=== PATIENT | female | born 1975 | race Caucasian/White ===

== ENCOUNTER 2018-08-16 16:29 | Inpatient (IN) ==
[2018-08-16] MEDS ORDERED: LORazepam 2 MG/1 ML VIAL IV PRN (18:02)
[2018-08-16] MEDS ORDERED: ACETAMINOPHEN 325 MG TABLET PO PRN (18:03)
[2018-08-16] MEDS ORDERED: ONDANSETRON 4 MG/2 ML VIAL IV PRN (18:03)
[2018-08-16 18:31] LABS: Basophils % 0.6 % (0.0-0.8); Eosinophils # 0.1 10*3/uL (0.0-0.87); Eosinophils % 0.9 % (0.00-10.9); Hematocrit 39.1 VOL% (35.7-47.0); Hemoglobin 13.2 GM/DL (12.0-16.0); Immature Granulocytes % 0.1 %; Immature Granulocytes Absolute 0.01 #; Lymphocytes # 1.6 10*3/uL (1.4-4.0); Lymphocytes % 23.1 % (21.3-54.2); Mean Corpuscular HGB Conc 33.8 GM/DL (32-36); Mean Corpuscular Volume 98.5 FL (87-102); Mean Platelet Volume 9.4 FL (9.6-12.0); Monocytes % 5.3 % (1.7-12.7); Platelet Count 199 T/CUMM (130-400); Red Blood Count 3.97 MC/CUMM (3.8-5.5); Red Cell Distribution Width 13.2 % (9.3-17.3); White Blood Count 6.9 T/CUMM (4-12)
[2018-08-16 18:51] LABS: Calcium 8.9 MG/DL (8.5-10.1); Osmolality,Calculated 270.4 MOS/KG (273-304)
[2018-08-16] MEDS: chlordiazePOXIDE 25 MG CAPSULE PO SCH (19:14)
[2018-08-16] MEDS ORDERED: THIAMINE INJ 100 MG, FOLIC ACID INJ 1 MG, MULTIVITAMIN INJ 10 ML in SODIUM CHLORIDE 0.9... IV ONE (19:30)
[2018-08-16 19:40] LABS: Apearance,Urine CLEAR (Clear); Bacteria,Urine Occasional /HPF (Few); Bilirubin,Urine Negative (Negative); Blood, Urine Negative (Negative); Glucose,Urine (UA) >=500 mg/dL (Negative); Ketones,Urine Negative (Negative); Nitrite,Urine Negative (Negative); Protein,Urine Negative; RBC,Urine <1 /HPF (0-4); Squamous Epithelial Cell,Urine Occasional /HPF (0-10); Urine Color Straw (Yellow); Urine Specific Gravity 1.005 (1.001-1.035); Urine Urobilinogen < 2.0 EU/DL (0.2-1.0); WBC,Urine <1 /HPF (0-6)
[2018-08-17] MEDS: chlordiazePOXIDE 25 MG CAPSULE PO SCH ×4 (01:28→19:05)
[2018-08-17] MEDS: ZALEPLON 5 MG CAPSULE PO PRN ×3 (01:31→21:32)
[2018-08-17 05:23] LABS: Basophils % 0.7 % (0.0-0.8); Eosinophils # 0.1 10*3/uL (0.0-0.87); Eosinophils % 2.5 % (0.00-10.9); Hemoglobin 12.2 GM/DL (12.0-16.0); Immature Granulocytes % 0.2 %; Immature Granulocytes Absolute 0.01 #; Lymphocytes # 1.7 10*3/uL (1.4-4.0); Lymphocytes % 38.8 % (21.3-54.2); Mean Corpuscular Volume 100.3 FL (87-102); Mean Platelet Volume 9.5 FL (9.6-12.0); Monocytes % 12.5 % (1.7-12.7); Neutrophils % 45.3 % (38.7-73.9); Platelet Count 177 T/CUMM (130-400); Red Blood Count 3.69 MC/CUMM (3.8-5.5); Red Cell Distribution Width 13.2 % (9.3-17.3); White Blood Count 4.4 T/CUMM (4-12)
[2018-08-17] MEDS: DICYCLOMINE 10 MG CAPSULE PO PRN ×2 (05:30→20:30)
[2018-08-17 05:34] LABS: Calcium 9.2 MG/DL (8.5-10.1); Osmolality,Calculated 278.4 MOS/KG (273-304)
[2018-08-17] MEDS ORDERED: SERTRALINE 100 MG TABLET PO SCH (09:00)
[2018-08-17] MEDS: INDOMETHACIN 25 MG CAPSULE PO SCH ×3 (09:58→21:30)
[2018-08-17] MEDS: SERTRALINE 50 MG TABLET PO SCH (09:59)
[2018-08-17] MEDS: PROPRANOLOL 20 MG TABLET PO SCH ×2 (09:59→20:30)
[2018-08-17] MEDS: ATORVASTATIN 20 MG TABLET PO SCH (09:59)
[2018-08-17] MEDS ORDERED: LOPERAMIDE 2 MG CAPSULE PO PRN (10:09)
[2018-08-17] MEDS ORDERED: PANTOPRAZOLE 20 MG TABLET PO SCH (10:12)
[2018-08-17] MEDS: LISINOPRIL 20 MG TABLET PO SCH (10:42)
[2018-08-17] MEDS: NICOTINE 14 MG/24 HR PATCH TRANSDERM SCH (10:42)
[2018-08-17] MEDS: PANTOPRAZOLE 40 MG TABLET PO SCH (10:42)
[2018-08-17] MEDS: HydrOXYzine PAMOATE 25 MG CAPSULE PO PRN ×2 (12:51→19:06)
[2018-08-17] MEDS: NORTRIPTYLINE 10 MG CAPSULE PO SCH (21:30)
[2018-08-18] MEDS: chlordiazePOXIDE 25 MG CAPSULE PO SCH ×3 (02:34→18:14)
[2018-08-18 04:21] LABS: Basophils % 0.7 % (0.0-0.8); Eosinophils # 0.1 10*3/uL (0.0-0.87); Eosinophils % 2.9 % (0.00-10.9); Hematocrit 36.1 VOL% (35.7-47.0); Hemoglobin 11.7 GM/DL (12.0-16.0); Immature Granulocytes % 0.2 %; Immature Granulocytes Absolute 0.01 #; Lymphocytes # 2.2 10*3/uL (1.4-4.0); Lymphocytes % 52.3 % (21.3-54.2); Mean Corpuscular HGB Conc 32.4 GM/DL (32-36); Mean Corpuscular Volume 101.7 FL (87-102); Mean Platelet Volume 9.5 FL (9.6-12.0); Monocytes % 8.7 % (1.7-12.7); Neutrophils % 35.2 % (38.7-73.9); Platelet Count 176 T/CUMM (130-400); Red Blood Count 3.55 MC/CUMM (3.8-5.5); Red Cell Distribution Width 13.3 % (9.3-17.3); White Blood Count 4.1 T/CUMM (4-12)
[2018-08-18 04:45] LABS: Calcium 8.4 MG/DL (8.5-10.1); Osmolality,Calculated 279.3 MOS/KG (273-304)
[2018-08-18 04:50] LABS: Eosinophils 5 % (0-10); Lymphocytes 52 % (20-55); Segmented Neutrophils 37 % (50-85); Total Cells Counted 100
[2018-08-18 04:51] LABS: Anisocytosis Slight; Microcytosis Slight; Platelet Estimate Normal; Stomatocytes Slight
[2018-08-18] MEDS ORDERED: MAGNESIUM SULF RIDER 4 GM in PREMIX 1 EACH IV PRN (07:43)
[2018-08-18] MEDS: LISINOPRIL 20 MG TABLET PO SCH (08:36)
[2018-08-18] MEDS: PROPRANOLOL 20 MG TABLET PO SCH ×2 (08:37→20:42)
[2018-08-18] MEDS: PANTOPRAZOLE 40 MG TABLET PO SCH (08:37)
[2018-08-18] MEDS: INDOMETHACIN 25 MG CAPSULE PO SCH ×3 (08:37→20:41)
[2018-08-18] MEDS: NICOTINE 14 MG/24 HR PATCH TRANSDERM SCH (08:37)
[2018-08-18] MEDS: SERTRALINE 50 MG TABLET PO SCH (08:37)
[2018-08-18] MEDS: ATORVASTATIN 20 MG TABLET PO SCH (08:37)
[2018-08-18] MEDS: HydrOXYzine PAMOATE 25 MG CAPSULE PO PRN ×2 (08:41→14:22)
[2018-08-18] MEDS: MAGNESIUM SULF RIDER 2 GM in PREMIX 1 EACH IV PRN ×2 (11:35→13:17)
[2018-08-18] MEDS: DICYCLOMINE 10 MG CAPSULE PO PRN (14:22)
[2018-08-18] MEDS: NORTRIPTYLINE 10 MG CAPSULE PO SCH (20:41)
[2018-08-18] MEDS: METHOCARBAMOL 750 MG TABLET PO PRN (20:42)
[2018-08-18] MEDS: ZALEPLON 5 MG CAPSULE PO PRN (20:42)
[2018-08-19] MEDS: HydrOXYzine PAMOATE 25 MG CAPSULE PO PRN (00:19)
[2018-08-19] MEDS: chlordiazePOXIDE 25 MG CAPSULE PO SCH ×2 (02:42→09:41)
[2018-08-19 05:13] LABS: Basophils % 0.5 % (0.0-0.8); Eosinophils # 0.2 10*3/uL (0.0-0.87); Eosinophils % 3.4 % (0.00-10.9); Hematocrit 35.1 VOL% (35.7-47.0); Hemoglobin 11.3 GM/DL (12.0-16.0); Immature Granulocytes % 0.2 %; Immature Granulocytes Absolute 0.01 #; Lymphocytes # 2.1 10*3/uL (1.4-4.0); Lymphocytes % 47.6 % (21.3-54.2); Mean Corpuscular HGB Conc 32.2 GM/DL (32-36); Mean Corpuscular Volume 102.9 FL (87-102); Mean Platelet Volume 9.8 FL (9.6-12.0); Neutrophils % 42.3 % (38.7-73.9); Platelet Count 172 T/CUMM (130-400); Red Blood Count 3.41 MC/CUMM (3.8-5.5); Red Cell Distribution Width 13.3 % (9.3-17.3); White Blood Count 4.4 T/CUMM (4-12)
[2018-08-19 05:28] LABS: Calcium 8.7 MG/DL (8.5-10.1); Osmolality,Calculated 278.3 MOS/KG (273-304)
[2018-08-19 07:39] VITALS: BP 149/99
[2018-08-19] MEDS: INDOMETHACIN 25 MG CAPSULE PO SCH (09:41)
[2018-08-19] MEDS: PROPRANOLOL 20 MG TABLET PO SCH (09:41)
[2018-08-19] MEDS: SERTRALINE 50 MG TABLET PO SCH (09:41)
[2018-08-19] MEDS: METHOCARBAMOL 750 MG TABLET PO PRN (09:41)
[2018-08-19] MEDS: PANTOPRAZOLE 40 MG TABLET PO SCH (09:42)
[2018-08-19] MEDS: ATORVASTATIN 20 MG TABLET PO SCH (09:42)
[2018-08-19] MEDS: LISINOPRIL 20 MG TABLET PO SCH (09:44)
[2018-08-19] MEDS: NICOTINE 14 MG/24 HR PATCH TRANSDERM SCH (09:51)
== END 2018-08-19 12:02 | disposition home or self-care (01) | DRG 897 ==
LOC: N.4E 17:35
PROVIDERS: ADMIT Internal Medicine; ATTEND Internal Medicine